=== PATIENT | male | born 1995 | race Caucasian/White ===

== ENCOUNTER 2016-07-31 01:17 | Emergency (ER) | payer SELFPAY ==
--- NOTE | 2016-07-31 01:36 | ERNOTE ---
Headache ER HPI - Narrative Date of Service: 07/31/16 - General Presenting Symptoms: headache Source: patient Exam Limitations: no limitations - Immun/Allergies/Home Medications Immunizations: IMMUNIZATION HX Immunizations Up to Date Yes History of Influenza Vaccine Yes Hx Pneumococcal Vaccination No Allergies/Adverse Reactions: Allergies amoxicillin trihydrate [From Augmentin] Adverse Reaction (Mild, Verified 08:21) BLISTERS potassium clavula *RETIRED-01/13/13 [From Augmentin] Adverse Reaction (Mild, Verified 04/23/16 08:21) BLISTERS rynatan Allergy (Unknown, Uncoded 07/22/15 03:12) Home Medications: HOME MEDICATIONS Albuterol Sulfate [Proair Hfa] 1 - 2 puff IH Q4H PRN 05/14/15 [Last Taken Unknown] Fluticasone/Salmeterol [Advair 250-50 Diskus] 1 puff IH BID 05/14/15 [Last Taken Unknown] Butalbit/Acetamin/Caff/Codeine [Fioricet W/Codeine] 1 cap PO Q4H PRN #20 capsule 07/31/16 [Last Taken Unknown] Metoclopramide HCl [Reglan] 1 tab PO Q6H PRN #20 tablet 07/31/16 [Last Taken Unknown] - Pain Pain Score: 7 - History of Present Illness Date (Duration): 07/28/16 Timing of Headache: abrupt, constant Context Headache: Present: new onset Quality: Present: throbbing Severity Maximum: Present: moderate Severity-Currently: Present: moderate Headache frequency: Present: frequent headaches Modifying Factors - (Worsens): Reports: exposure to light Associated Symptoms: Reports: nausea Exacerbated by:: Reports: light Review of Systems - Review of Systems Constitutional: Present: no symptoms reported EYE: Present: see HPI ENT: Present: no symptoms reported Respiratory: Present: no symptoms reported Cardiology: Present: no symptoms reported Gastrointestinal/Abdominal: Present: nausea Genitourinary: Present: no symptoms reported Musculoskeletal: Present: no symptoms reported Skin: Present: no symptoms reported Neurological: Present: See HPI Endocrine: Present: no symptoms reported Hematologic/Lymphatic: Present: no symptoms reported Psych: Present: no symptoms reported All Other Systems: All systems neg except as marked - Patient's Past Medical History Patient History - Medical: Anxiety, Kidney stone, Migraines, Other Patient History - Cardiac/Respiratory: Asthma Patient History - Cancer: No Hx of Cancer Patient History - Surgical Procedures: Ear Tubes, T & A, Other Patient History - Other: None - Social History Living Situations: home Abuse History: No History of abuse Psych History: Hx of Anxiety Smoking Status: Never smoker Alcohol Use: none Drug Use: none - Immunizations Immunizations Up to Date: Yes Hx Pneumococcal Vaccination: No History of Influenza Vaccine: Yes Physical Exam - Physical Exam General Appearance: Present: wd/wn, alert, no apparent distress Eye Exam: Normal inspection: bilateral, PERRL: bilateral, EOMI: bilateral Ears, Nose, Throat: Present: normal ENT inspection, hearing grossly normal Neck: Present: normal inspection, nontender Respiratory: Present: no respiratory distress, normal breath sounds, no accessory muscle use, chest nontender, lungs clear Cardiovascular/Chest: Present: regular rate, rhythm, no murmur Gastrointestinal/Abdominal: Present: normal bowel sounds, nontender, nondistended, soft, no organomegaly Neurological Exam: Present: alert, oriented, normal mood/affect, no motor/ sensory deficits, clinical cytogenetics director II-XII nml as tested DTR: N=norm/NB=norm/brisk/A=abs/DD=dull/dimin/HC=hyperactive: Knee (R): Normal, Knee (L): Normal Skin Exam: Present: normal color, warm/dry ED Progress - Vital Signs Patient's Vital Signs:: I have reviewed the patient's vital signs. Vital Signs: Vital Signs 07/31/16 01:17 Temperature 36.4 C L Pulse Rate 79 Respiratory 18 Rate Blood Pressure 130/75 O2 Sat by Pulse 97 Oximetry - Progress/Reassessment Chief Complaint: Headache Progress:: Improved Departure Clinical Impression: Migraine headache without aura Qualifiers: Status migrainosus presence: without status migrainosus Intractability: not intractable Qualified Code(s): G43.009 - Migraine without aura, not intractable , without status migrainosus - Departure Disposition: Home self-care Condition: Good Instructions: Migraine Headache, [id number] Referrals: Alex Crockett MD [Primary Care Provider] - Prescriptions: Butalbit/Acetamin/Caff/Codeine [Fioricet W/Codeine] 1 cap PO Q4H PRN #20 capsule PRN Reason: Headache Metoclopramide HCl [Reglan] 1 tab PO Q6H PRN #20 tablet PRN Reason: Nausea
[2016-07-31] MEDS ORDERED: DEXAMETHASONE SOD PHOSPHATE 10 MG/ML VIAL IV ONE (01:40)
[2016-07-31] MEDS ORDERED: NORMAL SALINE 1,000 ML IV ONE (01:40)
[2016-07-31] MEDS ORDERED: LORazepam 2 MG/ML DISP.SYRIN IV ONE (01:40)
[2016-07-31] MEDS ORDERED: METOCLOPRAMIDE HCL 5 MG/ML VIAL IV ONE (01:40)
[2016-07-31] MEDS ORDERED: KETOROLAC TROMETHAMINE 30 MG/ML VIAL IV ONE (01:40)
[2016-07-31] MEDS ORDERED: DEXAMETHASONE SOD PHOSPHATE 10 MG/ML VIAL ONE (01:44)
[2016-07-31] MEDS ORDERED: KETOROLAC TROMETHAMINE 30 MG/ML VIAL ONE (01:45)
[2016-07-31] MEDS ORDERED: LORazepam 2 MG/ML DISP.SYRIN ONE (01:45)
[2016-07-31] MEDS ORDERED: METOCLOPRAMIDE HCL 5 MG/ML VIAL ONE (01:45)
--- OUTSIDE RECORDS SUMMARY | 2016-07-31 02:30 | XMS REPORT | Continuity of Care Document ---
:1995 Author Organization [facility] ([facility]) Address [address] [place] [address] Phone [phone] Care Team Providers Name Role Phone Alex Limon Primary Care Provider [phone] Source Comments This disclosure is being made pursuant to the Care Everywhere program, applicable federal and state laws, and may not contain all informaitonavailable regarding this patient.[facility] ([facility]) Active Allergies and Adverse Reactions Allergen Noted Date Severity Reactions Comments Chlorpheniramine-Dm Urticaria (Hives) Phenylephrine Urticaria (Hives) Potassium Clavulanate Urticaria (Hives),Diarrhea,Nausea & Vomiting Current Medications Prescription Sig. Disp. Refills Start Date End Date Status methylphenidate apply 30 mg Active (DAYTRANA) 30 mg/9 hr topically daily. Patch 24 hr LEVALBUTEROL HCL (XOPENEX use by inhalation. Active INH) predniSONE 20 mg tablet Take 20 mg by mouth Active daily. GUANFACINE HCL Take by mouth. Active (GUANFACINE PO) OTHER Ear drops Active Active Problems Problem Noted Date Hematuria 01/31/2007 Overview: problem hand alterations tailor replacement for go-live --MAL Social History Tobacco Use Types Packs/Day Years Used Date Never Smoker Smokeless Tobacco: Never Used Alcohol Use Drinks/Week oz/Week Comments No Last Filed Vital Signs Vital Sign Reading Time Taken Blood Pressure 144/82 01/30/2012 2:55 PM CDT Pulse 64 10/19/2008 9:27 AM CDT Temperature 35.2 C (95.4 F) 10/19/2008 9:27 AM CDT Respiratory Rate 22 02/15/2007 12:59 PM CDT Height 1.702 m (5' 7") 01/30/2012 1:09 PM CDT Weight 90.719 kg (200 lb) 01/30/2012 1:09 PM CDT Body Mass Index 31.32 01/30/2012 1:09 PM CDT Oxygen Saturation 100% 01/30/2012 2:55 PM CDT Plan of Care Health Maintenance Due Date Last Done Comments Hepatitis B Vaccine (1 of 3 - Primary Series) 1994 HPV Vaccine (1 of 3 - Male 3 Dose Series) 2005 Tdap Vaccine 2005 Meningococcal Vaccine (1 of 1) 2010 Lipid Disorder Screening 2012 MMR Vaccine 2012 Td Vaccine 2012 Varicella Vaccine (1 of 2 - Adult - No Evidence of 2012 Immunity) Influenza Vaccine: Seasonal (#1) 01/10/2016 Results from Last 3 Months Not on file
[2016-07-31 03:10] VITALS: BP 128/76
== END 2016-07-31 03:08 | disposition home or self-care (01) ==
LOC: ER 01:17
DX: G43.009 Migraine without aura, not intractable, without status migrainosus (principal)